=== PATIENT | male | born 1950 | race Caucasian/White ===

== ENCOUNTER → 2016-10-20 | Outpatient (CLI) | payer BC, MEDICARE ==
[~2016-10-20] VITALS: Ht 177.8 cm; Wt 90.7 kg
[~2016-10-20] MED LIST: CALC600T21 PO; GINK120T2 PO; GINS100C2 PO; LIPI20TA PO; LISI10TA2 PO; MULT1TAB10 PO; PROPOFOL 200 MG/20 ML VIAL As Ordered ONE; VITA500C24 PO
[2016-10-20] MEDS: NS 1,000 ML IV SCH ×2 (06:30→07:18)
--- NOTE | 2016-10-20 08:02 | ROOR ---
Patient Name: Enoc Madera Procedure Date: 10/20/2016 7:30 AM Date of : 1950 Age: 66 Room: [facility] Gender: Male Note Status: Finalized Procedure: Colonoscopy to Cecum + Biopsy Polypectomy Indications: High risk colon cancer surveillance: Personal history of colonic polyps, Last colonoscopy: 2010 Providers: Elton Ellis MD Referring MD: Haley Sanchez DO Requesting Provider: Medicines: Monitored Anesthesia Care Complications: No immediate complications. Procedure: Pre-Anesthesia Assessment: - The heart rate, respiratory rate, oxygen saturations, blood pressure, adequacy of pulmonary ventilation, and response to care were monitored throughout the procedure. The Colonoscope was introduced through the anus and advanced to the cecum, identified by appendiceal orifice and ileocecal valve. The colonoscopy was performed without difficulty. The patient tolerated the procedure well. The quality of the bowel preparation was good. Findings: The perianal and digital rectal examinations were normal. Non-bleeding internal hemorrhoids were found during retroflexion. The hemorrhoids were small and Grade I (internal hemorrhoids that do not prolapse). A small polyp was found at 20 cm proximal to the anus. The polyp was sessile. The polyp was removed with a jumbo cold forceps. Resection and retrieval were complete. Multiple small and large-mouthed diverticula were found in the entire colon. The exam was otherwise without abnormality on direct and retroflexion views. Impression: - Non-bleeding internal hemorrhoids. - One small polyp at 20 cm proximal to the anus, removed with a jumbo cold forceps. Resected and retrieved. - Diverticulosis in the entire examined colon. - The examination was otherwise normal on direct and retroflexion views. - The exam was otherwise normal to the cecum. Recommendation: - Patient has a contact number available for emergencies. The signs and symptoms of potential delayed complications were discussed with the patient. Return to normal activities tomorrow. Written discharge instructions were provided to the patient. - High fiber diet. - Discharge patient to home. - Continue present medications. - Await pathology results. - Telephone GI clinic for pathology results in 1 week. - Repeat colonoscopy in 5 years for surveillance based on pathology results. - Return to referring physician. - The findings and recommendations were discussed with the patient's family. Elton Ellis MD Elton Ellis MD 10/20/2016 8:01:44 AM This report has been signed electronically. Number of Addenda: 0 Note Initiated On: 10/20/2016 7:30 AM Estimated Blood Loss: Estimated blood loss: none.
[2016-10-20 08:25] VITALS: BP 126/56
== END ==
LOC: M OPP 06:55
PROVIDERS: ATTEND Internal Medicine Gastroenterology
DX: Z12.11 Encounter for screening for malignant neoplasm of colon (principal); Z86.010 Personal history of colon polyps; D12.6 Benign neoplasm of colon, unspecified; K64.0 First degree hemorrhoids; K57.30 Diverticulosis of large intestine without perforation or abscess without bleeding; I10 Essential (primary) hypertension; E78.00 Pure hypercholesterolemia, unspecified; Z87.891 Personal history of nicotine dependence

== ENCOUNTER → 2017-12-06 | Outpatient (REF) | payer BC ==
[2017-12-07 14:16] LABS: PSA TOTAL 3.5 ng/mL (0.0-4.0)
== END ==
LOC: M LAB REF 12:32
DX: R97.20 Elevated prostate specific antigen [PSA] (principal)
CPT/HCPCS: 84154

== ENCOUNTER → 2019-10-30 | Outpatient (REF) | payer BC ==
[~2019-10-30] MED LIST changes: -CALC600T21 PO; +CALC600T60 PO; +GINK120T PO; -GINK120T2 PO; +LISI10TA15 PO; -LISI10TA2 PO; -PROPOFOL 200 MG/20 ML VIAL As Ordered ONE
[2019-10-30 18:27] LABS: FOLATE 20.6 NG/ML
== END ==
LOC: M LAB REF 16:50
PROVIDERS: ATTEND Internal Medicine
DX: D72.819 Decreased white blood cell count, unspecified (principal)

== ENCOUNTER → 2020-08-11 | Outpatient (CLI) | payer BC | LOC: M LABSMTC 11:18 | PROVIDERS: ATTEND Pediatrics | DX: Z20.828 Contact with and (suspected) exposure to other viral communicable diseases (principal) ==

== ENCOUNTER → 2020-11-17 | Outpatient (CLI) | payer BC ==
[~2020-11-17] MED LIST changes: +GASTROGRAFIN SOLUTION 30ML (Q9963) As Ordered ONE; +ISOVUE-370 76% 100ML VIAL As Ordered ONE
--- NOTE | 2020-11-17 18:25 | REP ---
INDICATION: LLQ HERNIA. COMPARISON: MRI abdomen 04/03/2015, CT 03/24/2015 TECHNIQUE: CT abdomen and pelvis performed without IV contrast but with oral Gastrografin mixture per our bowel contrast protocol.. CT abdomen pelvis performed with IV contrast as well, following intravenous administration of 100 cc of Isovue 370. Sagittal, coronal and 3D MIP reconstruction images are performed. FINDINGS: Lung bases: Unremarkable. Liver: Previously identified low-density liver lesions were worked up with MRI found consistent with hemangiomas. These are unchanged in appearance from the previous CT in 2015. No new hepatic mass or biliary dilatation. No adjacent ascites. Gallbladder: Shows a few dependent calculi layering. No pericholecystic fluid or edema. Spleen: Is mildly enlarged with a vertical diameter up to 13.7 cm. No focal lesion. Adrenals: Normal. Pancreas: Normal. Kidneys: There is no renal stone, cyst or solid mass extrarenal pelves bilaterally without hydronephrosis, hydroureter or ureteral stone. Small and large bowel: Colon shows scattered stool and gas throughout the appendix is seen and normal there is no sign of colitis or diverticulitis. No stricture or mass. Some progressive degenerative disc changes are noted at endplates in the thoracic and lumbar spine with discogenic sclerosis, marginal osteophytes and some vacuum phenomenon at L5-S1. No compression fractures. Posterior elements intact. Visualized ribs intact. No midline abdominal or umbilical hernia. However there is a spigelian hernia in the left lower quadrant in the lateral aspect of the left rectus and oblique muscles. It contains descending colon which is incarcerated but not strangulated. Diverticulosis seen above and below it without diverticulitis near or in it. There is no inguinal hernia or pelvic ventral hernia. Free fluid: None. Adenopathy: None. Appendix: Not inflamed. Osseous structures: Progressive degenerative changes in the spine as described above. Pelvis: Prostate enlarged and indents bladder base. Bladder without wall thickening mass or stone no dilated distal ureter. Aortoiliac vessels are without aneurysm. IMPRESSION: 1. Spigelian hernia on the left a 3.2 cm transverse diameter gap and with descending colon seen within it this is incarcerated but not strangulated there is diverticulosis but no diverticulitis near or within it. No fluid collection or abscess. 2. Diverticulosis distal left colon and sigmoid without diverticulitis. 3. Liver with a few focal lesions, previously noted by MRI to be hemangiomas. 4. Few small calcified gallstones. 5. Mild splenomegaly without focal splenic lesion intra-abdominal adenopathy or other acute finding <Electronically signed by Pawel Del Rosario > 11/17/20 [id number]
== END ==
LOC: M RAD 13:40
PROVIDERS: ATTEND Surgery
DX: R19.04 Left lower quadrant abdominal swelling, mass and lump (principal); K43.6 Other and unspecified ventral hernia with obstruction, without gangrene; K57.30 Diverticulosis of large intestine without perforation or abscess without bleeding; D18.03 Hemangioma of intra-abdominal structures; K80.80 Other cholelithiasis without obstruction
CPT/HCPCS: 74178; Q9963; Q9967

== ENCOUNTER → 2021-01-18 | Outpatient (CLI) | payer BC ==
[~2021-01-18] MED LIST changes: +ATOR1TAB21 PO; -GASTROGRAFIN SOLUTION 30ML (Q9963) As Ordered ONE; +GINK1CAP PO; +GINS100C PO; +GLUC1CAP10 PO; -ISOVUE-370 76% 100ML VIAL As Ordered ONE; +SYNT25TA PO; +VITA-243 PO; +VITMTA PO
== END ==
LOC: M LABSMTC 08:38
PROVIDERS: ATTEND Anesthesiology
DX: Z01.812 Encounter for preprocedural laboratory examination (principal); Z11.52 Encounter for screening for COVID-19

== ENCOUNTER 2021-01-23 07:08 | Day surgery (SDC) | payer BC ==
[~2021-01-23] VITALS: Ht 177.8 cm; Wt 87.5 kg
[~2021-01-23 07:08] MED LIST changes: +LIDOCAINE 1% MDV 20ML VIAL SQ PRN; +LR 1,000 ML IV ONE; +ceFAZolin SOD 2 GM in IV 1 EA IV ONE
[2021-01-23] MEDS ORDERED: fentaNYL 250 MCG/5 ML INJECTION (J3010) As Ordered ONE (08:09)
[2021-01-23] MEDS ORDERED: ONDANSETRON 4MG/2ML VIAL As Ordered ONE (08:09)
[2021-01-23] MEDS ORDERED: MIDAZOLAM INJ 2MG/2ML VIAL (J2250 PER 1MG) As Ordered ONE (08:09)
[2021-01-23] MEDS ORDERED: dexameTHASONE 4 MG/ML 1ML VIAL (J1100 PER 1MG) As Ordered ONE (08:09)
[2021-01-23] MEDS ORDERED: LIDOCAINE 2% 100MG/5ML SDV (FOR ANES.) As Ordered ONE (08:09)
[2021-01-23] MEDS ORDERED: ACETAMINOPHEN 1000MG 100ML IV BTL (OFIRMEV) (J0131 PER 10MG) As Ordered ONE (08:10)
[2021-01-23] MEDS ORDERED: ROCURONIUM BROMIDE 50 MG/5 ML VIAL As Ordered ONE ×2 (08:10→09:09)
[2021-01-23] MEDS ORDERED: BUPIVACAINE/EPIN 0.25% 30 ML VIAL As Ordered ONE (08:11)
[2021-01-23] MEDS ORDERED: BUPIVACAINE LIPOSOME/PF 1.3% 20ML VIAL (13.3MG/ML)(EXPAREL)(C9290 PER1MG) As Ordered ONE (08:11)
[2021-01-23] MEDS ORDERED: propofoL 200 MG/20 ML VIAL As Ordered ONE (08:11)
[2021-01-23] MEDS ORDERED: BUPIVACAINE HCL 0.25% 10ML VIAL As Ordered ONE (08:11)
[2021-01-23] MEDS ORDERED: SUGAMMADEX SODIUM 500 MG/5 ML VIAL (BRIDION) As Ordered ONE (09:11)
[2021-01-23] MEDS ORDERED: ePHEDrine SULFATE 25 MG/5 ML(5MG/ML) SYRINGE As Ordered ONE (09:15)
[2021-01-23] MEDS ORDERED: KETOROLAC 60MG 2ML VIAL As Ordered ONE (09:47)
[2021-01-23] MEDS ORDERED: fentaNYL 100 MCG/2 ML INJECTION (J3010) IV PRN (10:55)
[2021-01-23] MEDS ORDERED: ONDANSETRON 4MG/2ML VIAL IV PRN (10:55)
[2021-01-23] MEDS ORDERED: oxyCODONE 5MG TAB PO PRN (10:55)
[2021-01-23] MEDS ORDERED: LR 1,000 ML IV SCH (10:55)
[2021-01-23] MEDS ORDERED: NS 1,000 ML IV SCH (11:00)
--- NOTE | 2021-01-23 11:26 | RO ---
OPERATIVE NOTE DATE OF OPERATION: 01/23/2021 PREOPERATIVE DIAGNOSIS: Left lower quadrant ventral hernia/Spigelian hernia. POSTOPERATIVE DIAGNOSIS: Left lower quadrant ventral hernia/Spigelian hernia. PROCEDURE: Robotic-assisted laparoscopic left ventral hernia repair with ProGrip mesh. SURGEON: Edgar Terrazas Jr, MD SANDING MACHINE OPERATOR: Marianela Simpson (provided retraction, trocar placement, mesh placement and abdominal wall closure). EBL: Minimal. ANESTHESIA: General endotracheal anesthesia. DISPOSITION: Patient was taken to the recovery room awake, alert, hemodynamically stable. Sponge and needle counts correct x2. DESCRIPTION OF PROCEDURE: The patient was taken to the operating room and was given general anesthesia. After adequate anesthesia and preoperative antibiotics were given the patient was prepped and draped in usual sterile fashion. An epigastric incision was made with skin knife. Blunt dissection was carried down to fascia. Fascia was entered using Veress needle and insufflated to 15 mm of pressure. Right upper quadrant and right lower quadrant 8 mm trocars were placed. The patient was placed in Trendelenburg position right-side down and robot was docked. As the patient had a great deal of sigmoid colon within the hernia sac some of this was able to be reduced right off but the rest of this needed to be partially reduced and then I had to dissect this out of the hernia sac itself. In any case, once the camera was docked the monopolar cut scissors were used to takedown at least some of the more filmy attachments. The hernia sac was quite tightly adherent to the sigmoid colon and eventually I was able to mobilize this using sharp dissection as well as blunt dissection. Once this was adequately mobilized even mobilizing the sigmoid colon enough so that it felt like I was going into the retroperitoneum, with mostly blunt dissection in this area similar to mobilization for colectomy. The colon was able to be mobilized completely off this and out of this hernia. An evaluation of where it was, the hernia, it was just lateral and posterior enough that I felt a preperitoneal approach/repair would cross the epigastrics and even be into the retroperitoneum to some extent and felt that this might actually be more amenable to repair similar to inguinal hernia. Thus a peritoneal flap was created with monopolar cut scissors down to this hernia sac. The hernia sac was mobilized out of the structure and then mobilized off the cord structures and the vas was well visualized. The cord structures were well visualized. Eventually after this was mobilized adequately then a ProGrip mesh was cut to the appropriate size. However, the defect was more lateral to the epigastrics than an indirect hernia and the edges actually came together some minimal amount in this area and thus I felt it was reasonable to put a 2-0 V-Loc to loosely approximate the edges and also give a spider web of suture to have the mesh fall in this area. Thus, the ProGrip mesh 10 x 15 was placed in the preperitoneal space, pressed into position and then the peritoneum closed over the top of this under decreased insufflation of 10 mm of pressure. The dissection had gotten through the peritoneum on the lower aspect closer to the sigmoid colon which I approximated with 3-0 V-Loc as well. After good hemostasis was achieved the patient was awakened, extubated and brought to recovery room awake, alert, hemodynamically stable. Sponge and needle counts correct x2.
[2021-01-23 12:15] VITALS: BP 151/76
== END 2021-01-23 12:24 | disposition home or self-care (01) ==
LOC: M SDC 07:08
PROVIDERS: ATTEND Surgery
DX: K43.6 Other and unspecified ventral hernia with obstruction, without gangrene (principal); I10 Essential (primary) hypertension; E78.00 Pure hypercholesterolemia, unspecified; M10.9 Gout, unspecified; K21.9 Gastro-esophageal reflux disease without esophagitis; E03.9 Hypothyroidism, unspecified; M54.5 Low back pain; F17.210 Nicotine dependence, cigarettes, uncomplicated; Z79.899 Other long term (current) drug therapy
CPT/HCPCS: 49653; C1781; C9290; J0131; J0690; J1100; J1885; J2250; J2405; J3010; S2900

== ENCOUNTER → 2021-07-22 | Outpatient (REF) | payer MEDICARE, BC ==
[~2021-07-22] MED LIST changes: -LIDOCAINE 1% MDV 20ML VIAL SQ PRN; -LR 1,000 ML IV ONE; -ceFAZolin SOD 2 GM in IV 1 EA IV ONE
[2021-07-22 17:33] LABS: FOLATE 22.3 NG/ML
== END ==
LOC: M LAB REF 16:36
PROVIDERS: ATTEND Internal Medicine
DX: D72.819 Decreased white blood cell count, unspecified (principal)

== ENCOUNTER → 2022-06-08 | Outpatient (CLI) | payer MEDICARE, BC ==
[~2022-06-08] MED LIST changes: -LISI10TA15 PO; +LISI10TA24 PO
[2022-06-10 23:10] LABS: PSA % FREE 26.3 % (.); PSA FREE 1.5 ng/mL; PSA TOTAL 5.7 ng/mL (0.0-4.0)
== END ==
LOC: M WUC 09:44
PROVIDERS: ATTEND Urology
DX: R97.20 Elevated prostate specific antigen [PSA] (principal)

== ENCOUNTER 2023-02-07 09:53 | Day surgery (SDC) | payer MEDICARE, BC ==
[~2023-02-07] VITALS: Ht 179.1 cm; Wt 89.8 kg
[~2023-02-07 09:53] MED LIST changes: +LEVO50TA5 PO; +NS 1,000 ML IV ONE; +PRES10CA2 PO; +TAMS1CAP17 PO; +eye promise PO
[2023-02-07] MEDS ORDERED: LIDOCAINE 2% 100MG/5ML SDV (FOR ANES.) As Ordered ONE (11:43)
[2023-02-07] MEDS ORDERED: propofoL 200 MG/20 ML VIAL As Ordered ONE (11:43)
[2023-02-07 12:27] VITALS: BP 167/92
== END 2023-02-07 12:28 | disposition home or self-care (01) ==
LOC: M OPP 09:53
PROVIDERS: ATTEND Internal Medicine Gastroenterology
DX: Z12.11 Encounter for screening for malignant neoplasm of colon (principal); Z86.010 Personal history of colon polyps; K64.0 First degree hemorrhoids; K57.30 Diverticulosis of large intestine without perforation or abscess without bleeding; Z87.891 Personal history of nicotine dependence; Z79.899 Other long term (current) drug therapy

== ENCOUNTER → 2023-04-13 | Outpatient (REF) | payer MEDICARE, BC ==
[~2023-04-13] MED LIST changes: -NS 1,000 ML IV ONE
[2023-04-13 10:12] LABS: HEMATOCRIT 42.2 % (42.0-52.0); HEMOGLOBIN 13.9 g/dl (13.5-17.5); MEAN CORPUSCULAR HEMOGLOBIN 30.1 pg (27.0-33.0); MEAN CORPUSCULAR HGB CONC 32.9 g/dl (32.0-36.5); MEAN CORPUSCULAR VOLUME 91.3 fl (80.0-96.0); PLATELET COUNT, AUTOMATED 108 10^3/uL (150-450); RED BLOOD COUNT 4.62 10^6/uL (4.30-6.10); WHITE BLOOD COUNT 3.5 10^3/uL (4.0-10.0)
[2023-04-13 10:42] LABS: PERCENT SATURATION 18.3 % (19.7-50.0)
[2023-04-13 10:44] LABS: FOLATE 23.9 NG/ML (>5.4)
[2023-04-13 10:57] LABS: ATYPICAL LYMPH 2 % (0-5); BASOPHILS 1 % (0-1); LYMPHOCYTES 26 % (16-44); MONOCYTES 2 % (0-5); NEUTROPHILS 68 % (28-66)
[2023-04-13 10:58] LABS: ANISOCYTOSIS 1+; PLATELET ESTIMATE DECREASED (NORMAL)
== END ==
LOC: M LAB REF 09:46
PROVIDERS: ATTEND Internal Medicine
DX: D72.819 Decreased white blood cell count, unspecified (principal)

== ENCOUNTER → 2023-05-22 | Outpatient (REF) | payer MEDICARE, BC | LOC: M LAB REF 11:11 | PROVIDERS: ATTEND Physician Assistant | DX: R35.0 Frequency of micturition (principal) ==

== ENCOUNTER → 2024-02-11 | Outpatient (CLI) | payer MEDICARE, BC | LOC: M RAD 08:59 | PROVIDERS: ATTEND Internal Medicine | DX: M54.59 Other low back pain (principal) ==

== ENCOUNTER → 2024-02-29 | Outpatient (CLI) | payer MEDICARE, BC | LOC: M RAD 09:05 | PROVIDERS: ATTEND Internal Medicine | DX: K82.4 Cholesterolosis of gallbladder (principal); D18.03 Hemangioma of intra-abdominal structures ==

== ENCOUNTER → 2024-06-06 | Outpatient (CLI) | payer MEDICARE, BC | LOC: M WUC 12:54 | PROVIDERS: ATTEND Urology | DX: R97.20 Elevated prostate specific antigen [PSA] (principal) ==

== ENCOUNTER → 2025-08-13 | Outpatient (REF) | payer MEDICARE, BC ==
[~2025-08-13] MED LIST changes: +NAPR-832; +OLME20TA50; +OMEG350C PO; +TAMS1CAP17
[2025-08-13 13:43] LABS: VITAMIN B12 LEVEL 287 PG/ML (211-911)
== END ==
LOC: M LAB REF 12:23
PROVIDERS: ATTEND Internal Medicine
DX: D72.819 Decreased white blood cell count, unspecified (principal)